=== PATIENT | female | born 1975 | race Caucasian/White ===

== ENCOUNTER 2017-07-06 14:12 | Inpatient (IN) | payer OTHER ==
[2017-07-06] MEDS ORDERED: OXYTOCIN/DEXTROSE 5%-WATER 30 UNITS/500 ML BAG IV ONE ×2 (15:37→20:20)
[2017-07-06] MEDS ORDERED: RINGER'S SOLUTION,LACTATED 1,000 ML IV ONE (15:37)
[2017-07-06] MEDS ORDERED: DEXTROSE 5%-LACTATED RINGERS 1,000 ML IV PRN (15:37)
[2017-07-06] MEDS ORDERED: LIDOCAINE HCL 50 ML VIAL PERI PRN (15:37)
[2017-07-06] MEDS ORDERED: ONDANSETRON HCL/PF 2 MG/ML VIAL IV PRN ×2 (15:37→19:20)
[2017-07-06] MEDS ORDERED: FLU VACC QS2017-18(6MOS UP)/PF 60 MCG/0.5 ML SYRINGE IM ONE (15:59)
[2017-07-06] MEDS ORDERED: BUPIVACAINE HCL/0.9 % NACL/PF 250 ML EP PRN (19:20)
[2017-07-06] MEDS ORDERED: NALOXONE HCL 1 MG/1 ML SYRG IV PRN (19:20)
[2017-07-06] MEDS ORDERED: fentaNYL CITRATE/PF 50 MCG/ML AMPUL IT SCH (19:30)
[2017-07-06] MEDS ORDERED: oxyCODONE HCL/ACETAMINOPHEN 1 TAB TABLET PO PRN (20:20)
[2017-07-06] MEDS ORDERED: GLYCERIN/WITCH HAZEL LEAF 40 APPL BOX TP PRN (20:20)
[2017-07-06] MEDS ORDERED: BENZOCAINE/MENTHOL 81 SPRAY CAN TP PRN (20:20)
[2017-07-06] MEDS ORDERED: HYDROCORTISONE 30 APPL TUBE TP PRN (20:20)
[2017-07-06] MEDS ORDERED: SENNOSIDES 8.6 MG TABLET PO PRN (20:20)
[2017-07-06] MEDS ORDERED: BISACODYL 10 MG SUPP.RECT RC PRN (20:20)
--- NOTE | 2017-07-06 20:25 | OR ---
Operative Report - Dictated Report Narrative: Spontaneous vaginal delivery of viable male at [age] on 07/06/2017 with Apgars 9 and 9, weighing 3823 g in QUINCY position. Tight nuchal draping cord 1. Cord clamping delayed approximately 1 minute Placenta delivered complete, intact, with three vessel cord Estimated blood loss: less than 50 ml Lacerations: Second degree laceration (3 cm) repaired with 3-0 Vicryl Rapide
[2017-07-06] MEDS: IBUPROFEN 800 MG TABLET PO PRN (20:59)
[2017-07-06] MEDS: DOCUSATE SODIUM 100 MG CAPSULE PO SCH (20:59)
[2017-07-06] MEDS: oxyCODONE HCL/ACETAMINOPHEN 1 TAB TABLET PO PRN (23:59)
[2017-07-07] MEDS: IBUPROFEN 800 MG TABLET PO PRN ×4 (02:47→21:54)
[2017-07-07] MEDS: oxyCODONE HCL/ACETAMINOPHEN 1 TAB TABLET PO PRN (02:48)
[2017-07-07] MEDS: DOCUSATE SODIUM 100 MG CAPSULE PO SCH ×2 (09:37→21:55)
[2017-07-07] MEDS ORDERED: FLU VACC QS2017-18(6MOS UP)/PF 60 MCG/0.5 ML SYRINGE IM ONE (10:43)
--- NOTE | 2017-07-07 18:29 | PN ---
Subjective - Date and Time Seen Date: 07/07/17 Time: 18:28 Objective - Vitals Vitals: Last Vital Signs Temp 36.4 C L 07/07/17 08:00 Pulse 75 07/07/17 08:00 Resp 18 07/07/17 08:00 BP 109/58 07/07/17 08:00 Pulse Ox 99 07/07/17 08:00 Patient denies complaints. Lochia wnl Abdomen - soft, nontender Uterus - firm, at umbilicus - 1 No calf tenderness Impression: day #1 - s/p spontaneous vaginal delivery. Plan: Continue routine care
[2017-07-08] MEDS: IBUPROFEN 800 MG TABLET PO PRN ×2 (05:27→11:50)
[2017-07-08] MEDS: DOCUSATE SODIUM 100 MG CAPSULE PO SCH (09:48)
[2017-07-08 09:51] VITALS: BP 117/65
--- NOTE | 2017-07-08 12:56 | PN ---
Subjective - Date and Time Seen Date: 07/08/17 Time: 12:55 Objective - Vitals Vitals: Last Vital Signs Temp 36.8 C 07/08/17 09:15 Pulse 74 07/08/17 09:15 Resp 14 07/08/17 09:15 BP 117/65 07/08/17 09:15 Pulse Ox 98 07/08/17 09:15 Patient denies complaints. Lochia wnl Abdomen - soft, nontender Uterus - firm, at umbilicus - 2 No calf tenderness Impression: day #2 - s/p spontaneous vaginal delivery. Advanced maternal age. Anemia. Plan: Routine discharge instructions
== END 2017-07-08 14:10 | disposition home or self-care (01) | DRG 775 ==
LOC: OB 15:33 → MS 07-07 16:02
PROVIDERS: ADMIT Obstetrics & Gynecology; ATTEND Obstetrics & Gynecology
PROC: 10E0XZZ Delivery of Products of Conception, External Approach (ICD-10-PCS; principal; 2017-07-06)
PROC: 0KQM0ZZ Repair Perineum Muscle, Open Approach (ICD-10-PCS; 2017-07-06)
PROC: 3E0P3VZ Introduction of Hormone into Female Reproductive, Percutaneous Approach (ICD-10-PCS; 2017-07-06)
PROC: 4A1HXCZ Monitoring of Products of Conception, Cardiac Rate, External Approach (ICD-10-PCS; 2017-07-06)
DX: O70.1 Second degree perineal laceration during delivery (principal); Z37.0 Single live birth; O69.1XX0 Labor and delivery complicated by cord around neck, with compression, not applicable or unspecified; O99.02 Anemia complicating childbirth; D64.9 Anemia, unspecified; Z3A.39 39 weeks gestation of pregnancy; Z23 Encounter for immunization
CPT/HCPCS: 90686; G0008